=== PATIENT | female | born 1985 | race Hispanic/Latino ===

== ENCOUNTER 2018-11-29 15:13 | Emergency (ER) | payer OTHER ==
--- NOTE | 2018-11-29 18:07 | RAD REPORT ---
EXAM DESCRIPTION: US - OB Limited - 11/29/2018 5:58 pm CLINICAL HISTORY: with decreased movement COMPARISON: None FINDINGS: Limited ultrasound was obtained to assess for viability. Single live intrauterine is in transverse presentation. Cardiac activity 143 beats per minute. The placenta is anterior. A subchorionic/retroplacental bleed is not seen. Cervix measures 4.7 centimeters Evaluation of right and left adnexa is unremarkable IMPRESSION: Single live intrauterine in transverse presentation If a survey is desired it should be performed at approximately 18 weeks
--- NOTE | 2018-11-29 18:24 | EDPHYS ---
Physician Documentation [facility] Name: Yoanna Holm Age: 33 yrs Sex: Female : 1985 Arrival Date: 11/29/2018 Time: 15:15 Bed 13 Private MD: Out, [facility], [facility] ED Physician Bharat Ritchie HPI: 11/29 18:25 This 33 yrs old Female presents to ER via Ambulatory with complaints of Abd kb Pressure-14wk pg. 18:25 The patient presents to the emergency department with no movement. The estimated kb gestational age is 14 weeks. course: care: private OB physician, Leakage of Fluid: none appreciated, Ultrasound: the patient had an ultrasound, which was normal, Risk/complications: no obvious risks or complications are appreciated. Previous pregnancies: in previous pregnancies patient has had. Associated signs and symptoms: Pertinent positives: abdominal pain, Pertinent negatives: chest pain, diarrhea, dysuria, fever, frequency, nausea, ruptured membranes, seizure, shortness of breath, vaginal bleeding, vaginal discharge, vomiting. The patient has not experienced similar symptoms in the past. The patient has not recently seen a physician. 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 - Social history:: Smoking status: Patient/guardian denies using tobacco. - Ebola Screening: : No symptoms or risks identified at this time. ROS: 18:23 Constitutional: Negative for fever, chills, and weight loss, Neck: Negative for injury, kb pain, and swelling, Cardiovascular: Negative for chest pain, palpitations, and edema, Respiratory: Negative for shortness of breath, cough, wheezing, and pleuritic chest pain, Back: Negative for injury and pain, : Negative for injury, bleeding, discharge, and swelling, MS/Extremity: Negative for injury and deformity, Skin: Negative for injury, rash, and discoloration, Neuro: Negative for headache, weakness, numbness, tingling, and seizure. 18:23 Abdomen/GI: Positive for abdominal pain. Exam: 18:24 Constitutional: This is a well developed, well nourished patient who is awake, alert, kb and in no acute distress. Head/Face: Normocephalic, atraumatic. Chest/axilla: Normal chest wall appearance and motion. Nontender with no deformity. No lesions are appreciated. Cardiovascular: Regular rate and rhythm with a normal S1 and S2. No gallops, murmurs, or rubs. Normal PMI, no JVD. No pulse deficits. Respiratory: Lungs have equal breath sounds bilaterally, clear to auscultation and percussion. No rales, rhonchi or wheezes noted. No increased work of breathing, no retractions or nasal flaring. Back: No spinal tenderness. No costovertebral tenderness. Full range of motion. Skin: Warm, dry with normal turgor. Normal color with no rashes, no lesions, and no evidence of cellulitis. MS/ Extremity: Pulses equal, no cyanosis. Neurovascular intact. Full, normal range of motion. Neuro: Awake and alert, GCS 15, oriented to person, place, time, and situation. Cranial nerves II-XII grossly intact. Motor strength 5/5 in all extremities. Sensory grossly intact. Cerebellar exam normal. Normal gait. 18:24 Abdomen/GI: Inspection: abdomen appears normal, Bowel sounds: normal, in all quadrants, Palpation: soft, in all quadrants, mild abdominal tenderness, in the right lower quadrant and left lower quadrant. Vital Signs: 15:32 BP 199 / 55; Pulse 101; Resp 16; Temp 97.4; Pulse Ox 98% on R/A; Pain 3/10; hb 17:15 BP 178 / 67; Pulse 97; Pulse Ox 99% on R/A; ph 18:30 BP 157 / 58; Pulse 96; Resp 18; Temp 97.9; Pulse Ox 99% on R/A; ph MDM: 17:02 Patient medically screened. kb 18:22 Data reviewed: vital signs, nurses notes. Data interpreted: Pulse oximetry: on room air kb is 98 %. Interpretation: normal. Counseling: I had a detailed discussion with the patient and/or guardian regarding: the historical points, exam findings, and any diagnostic results supporting the discharge/admit diagnosis, lab results, radiology results, the need for outpatient follow up, a family practitioner, to return to the emergency department if symptoms worsen or persist or if there are any questions or concerns that arise at home. 11/29 17:21 Order name: Urine Dipstick--Ancillary (enter results) bd 11/29 17:21 Order name: Urine --Ancillary (enter results) bd 11/29 17:05 Order name: Urine Test (obtain specimen); Complete Time: 17:22 kb 11/29 17:05 Order name: Urine Dipstick-Ancillary (obtain specimen); Complete Time: 17:22 kb 11/29 17:19 Order name: OB Limited; Complete Time: 18:11 kb Administered Medications: No medications were administered Disposition: 11/30 12:37 Co-signature as Attending Physician, Bharat Ritchie MD. rn Disposition: 11/29/18 18:23 Discharged to Home. Impression: 14 weeks gestation of . - Condition is Stable. - Discharge Instructions: Second Trimester of , [id number]. - Medication Reconciliation Form, Thank You Letter, Antibiotic Education, Prescription Opioid Use form. - Follow up: Emergency Department; When: As needed; Reason: Worsening of condition. Follow up: Private Physician; When: 2 - 3 days; Reason: Recheck today's complaints, Continuance of care, Re-evaluation by your physician. Signatures: Dispatcher [employer] EDMS Joselin Carrera, TENT ASSEMBLER-C TENT ASSEMBLER-Ckb Bharat Ritchie MD MD rn Hall, Patricia, RN RN ph Baxter, Heather, RN RN Corrections: (The following items were deleted from the chart) 11/29 18:34 18:23 11/29/2018 18:23 Discharged to Home. Impression: 14 weeks gestation of . ph Condition is Stable. Forms are Medication Reconciliation Form, Thank You Letter, Antibiotic Education, Prescription Opioid Use. Follow up: Emergency Department; When: As needed; Reason: Worsening of condition. Follow up: Private Physician; When: 2 - 3 days; Reason: Recheck today's complaints, Continuance of care, Re-evaluation by your physician. kb
--- NOTE | 2018-11-29 18:24 | ER ---
Nurse's Notes [facility] Name: Yoanna Holm Age: 33 yrs Sex: Female : 1985 Arrival Date: 11/29/2018 Time: 15:15 Bed 13 Private MD: Out, [facility] Diagnosis: 14 weeks gestation of Presentation: 11/29 15:33 Presenting complaint: Decreased movement and lower abdominal pain after hb intercourse 2 days ago. Denies bleeding/discharge. , LMP 08/24/18, [place] . Transition of care: patient was not received from another setting of care. Onset of symptoms was November 29, 2018. Risk Assessment: Do you want to hurt yourself or someone else? Patient reports no desire to harm self or others. Initial Sepsis Screen: Does the patient meet any 2 criteria? No. Patient's initial sepsis screen is negative. Does the patient have a suspected source of infection? No. Patient's initial sepsis screen is negative. Care prior to arrival: None. 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 - Social history:: Smoking status: Patient/guardian denies using tobacco. - Ebola Screening: : No symptoms or risks identified at this time. Screenin:15 Abuse screen: Denies threats or abuse. Denies injuries from another. Nutritional ph screening: No deficits noted. Tuberculosis screening: No symptoms or risk factors identified. Fall Risk None identified. Assessment: 17:15 General: Appears in no apparent distress. comfortable, well groomed, Behavior is calm, ph cooperative, appropriate for age. Pain: Denies pain. Neuro: Level of Consciousness is awake, alert, obeys commands, Oriented to person, place, time, situation. Cardiovascular: Capillary refill < 3 seconds in bilateral fingers Patient's skin is warm and dry. Respiratory: Airway is patent Respiratory effort is even, unlabored. GI: Abdomen is round non-distended, Patient currently denies diarrhea, nausea, vomiting. : Reports pain in suprapubic area after intercourse, denies pain at this time, also reports decreased movement Denies discharge, vaginal bleeding. Derm: Skin is intact, is healthy with good turgor, Skin is pink, warm \T\ dry. Musculoskeletal: Circulation, motion, and sensation intact. Range of motion: intact in all extremities. 18:30 Reassessment: Patient appears in no apparent distress at this time. Patient and/or ph family updated on plan of care and expected duration. Pain level reassessed. Patient is alert, oriented x 3, equal unlabored respirations, skin warm/dry/pink. Pt d/c home. Vital Signs: 15:32 BP 199 / 55; Pulse 101; Resp 16; Temp 97.4; Pulse Ox 98% on R/A; Pain 3/10; hb 17:15 BP 178 / 67; Pulse 97; Pulse Ox 99% on R/A; ph 18:30 BP 157 / 58; Pulse 96; Resp 18; Temp 97.9; Pulse Ox 99% on R/A; ph ED Course: 15:15 Patient arrived in ED. sb2 15:15 Out, of Town is Private Physician. sb2 15:35 Triage completed. hb 15:35 Arm band placed on. hb 17:02 Joselin Carrera [facility]-C [facility]. kb 17:02 Bharat Ritchie MD is Attending Physician. kb 17:15 Patient has correct armband on for positive identification. Bed in low position. Call ph light in reach. Side rails up X 1. Pulse ox on. NIBP on. Warm blanket given. 17:19 Santa [place], RN is Primary Nurse. ph 18:05 US OB Limited In Process Unspecified. EDMS 18:30 No provider procedures requiring assistance completed. Patient did not have IV access ph during this emergency room visit. Administered Medications: No medications were administered Outcome: 18:23 Discharge ordered by . kb 18:34 Patient left the ED. ph 18:34 Discharged to home ambulatory. ph 18:34 Condition: good 18:34 Discharge instructions given to patient, Instructed on discharge instructions, follow up and referral plans. Demonstrated understanding of instructions, follow-up care. Signatures: Dispatcher [employer] Joselin Lemos, SENIOR BENEFITS ANALYST-C ELIANE-Santa [place], RN RN Sisi Mosher, RN RN Melissa Jameson
[2018-11-29 20:15] LABS: Urine Blood TRACE (NEG); Urine Glucose NEGATIVE (NEG); Urine Protein NEGATIVE (NEG); Urine Specific Gravity 1.025 (1.005-1.030); Urine pH 6.5 (5.0-7.0)
== END 2018-11-29 18:34 | disposition home or self-care (01) ==
LOC: ER 15:13
DX: O26.892 Other specified pregnancy related conditions, second trimester (principal); R10.9 Unspecified abdominal pain; Z3A.14 14 weeks gestation of pregnancy
CPT/HCPCS: 76815; 81003; 81025; 99283